=== PATIENT | female | born 1955 | race Caucasian/White ===

== ENCOUNTER 2023-08-25 13:41 | Outpatient (OUT) | payer MEDICARE, SELFPAY ==
--- NOTE | 2023-08-25 14:02 | XR_ITS ---
The [place] [id number] Patient Name: ZAIN VALENTINO MRN: [id number] date: 1955 Sex: F Assigned Patient Location: [facility] Current Patient Location: Accession/Order Number: [id number] Exam Date: 08/25/2023 14:17 Report Date: 08/26/2023 00:46 At the request of: VISHAL GIL Procedure: XR abdomen min 2V EXAMINATION: XR abdomen min 2V HISTORY: Abdominal Cramping R10.9,Nausea R11.0 COMPARISON: No relevant comparison available. FINDINGS: BOWEL GAS PATTERN: Air-fluid levels within multiple loops of bowel within the mid and upper abdomen. Large amount of stool within distal colon. Innumerable surgical clips throughout the abdomen and pelvis. No free air. CALCIFICATIONS: None significant. OTHER: Negative. No abnormal gaseous collections. XR/XR abdomen min 2V IMPRESSION: 1. Ileus versus distal partial bowel obstruction. Appearance favors ileus. Electronically authenticated by: JAMES ESCOBAR Date: 08/26/2023 00:46
== END 2023-08-25 13:42 | disposition home or self-care (01) ==
LOC: RAD 13:46
PROVIDERS: PCP Nurse Practitioner Family; Visit Provider Nurse Practitioner Family
DX: R10.9 Unspecified abdominal pain (principal); R11.0 Nausea; K56.7 Ileus, unspecified
CPT/HCPCS: 74019

== ENCOUNTER 2023-08-27 08:25 | Outpatient (OUT) | payer MEDICARE, SELFPAY ==
--- NOTE | 2023-08-27 08:47 | CT_ITS ---
The [address] [address] Patient Name: ZAIN VALENTINO MRN: [id number] date: 1955 Sex: F Assigned Patient Location: [facility] Current Patient Location: [facility] Accession/Order Number: [id number] Exam Date: 08/27/2023 09:00 Report Date: 08/27/2023 11:09 At the request of: NON-STAFF PHYSICIAN Procedure: CT abdomen pelvis w con EXAM: CT abdomen pelvis w con HISTORY: Follow-up for ileus versus partial bowel obstruction. COMPARISON: CT pelvis dated 02/17/2023. CT abdomen pelvis dated 08/24/2022. TECHNIQUE: IV contrast only was administered. Sagittal and coronal reformatted images were produced. Dose reduction techniques were achieved by using automated exposure control and/or adjustment of mA and/or kV according to patient size and/or use of iterative reconstruction technique. FINDINGS: The lung bases are clear. Lower mediastinal structures are normal. The liver is mildly enlarged and shows mild fatty change. The spleen is enlarged but enhances normally. The adrenal glands and pancreas are normal. Surgical changes of cholecystectomy. The kidneys enhance symmetrically and show no calcifications or hydronephrosis. The aorta has a normal course and caliber. Again seen is massive dilation of the distal portion of the colon. Stable colostomy in the right lower quadrant. Stable small anterior abdominal wall hernia containing a nondistended loop of bowel. Surgical changes of hysterectomy. Urinary bladder is minimally filled and is displaced posteriorly and inferiorly by the distended loop of bowel. Osseous structures are stable in appearance. CT/CT abdomen pelvis w con IMPRESSION: No appreciable change in the appearance of the massively dilated portion of the distal colon. Hepatosplenomegaly with mild fatty change in the liver. Electronically authenticated by: SALVADOR BRADSHAW Date: 08/27/2023 11:09
== END 2023-08-27 08:26 | disposition home or self-care (01) ==
LOC: RAD 08:26
PROVIDERS: PCP Nurse Practitioner Family
DX: K56.690 Other partial intestinal obstruction (principal); R16.2 Hepatomegaly with splenomegaly, not elsewhere classified
CPT/HCPCS: 74177; Q9967

== ENCOUNTER 2024-02-03 08:37 | Outpatient (OUT) | payer MEDICARE, SELFPAY ==
--- NOTE | 2024-02-03 08:45 | MM_ITS ---
Patient Name: ZAIN VALENTINO MR#: [id number] : 1955 Exam Date: 02/03/2024 Ordering Doctor: MRS. VISHAL GIL [employer] [facility]OLOG[facility] REPORT PROCEDURE: MM TOMOSYNTHESIS SCREENING BI COMPARISON: MG MAMM SCREEN 3D DEMI CAD, 02/01/2023. MG MAMM SCREEN 3D DEMI CAD, 12/17/2021. MG MAMM SCREEN DEMI W CAD, 03/22/2019. MG MAMM DEMI SCRN W CAD DIG, 05/03/2013. INDICATIONS: Screening Calculator Name NCI Breast Cancer Risk Assessment Tool 5 Year Breast Cancer Risk 1.90% Lifetime Breast Cancer Risk 6.40% Personal Breast Cancer No Personal Ovarian Cancer No Treatments None Family Cancers None LOCATION: [facility] BREAST COMPOSITION: Almost entirely fatty. FINDINGS: DIAGNOSTIC CATEGORY 2--BENIGN FINDING: RIGHT BREAST: No significant suspicious finding. Scattered benign-appearing calcifications are present. Scattered benign-appearing nodules are present. No significant change has occurred. LEFT BREAST: No significant suspicious finding. Scattered benign-appearing nodules are present. No significant change has occurred. RECOMMENDATIONS: ROUTINE MAMMOGRAM AND CLINICAL EVALUATION IN 12 MONTHS. PLEASE NOTE: A NORMAL MAMMOGRAM DOES NOT EXCLUDE THE POSSIBILITY OF BREAST CANCER. A CLINICALLY SUSPICIOUS PALPABLE LUMP SHOULD BE BIOPSIED. Dictated by: Fortunato Quintana M.D. on 02/04/2024 at 11:48 Approved by: Fortunato Quintana M.D. on 02/04/2024 at 11:54
--- NOTE | 2024-02-03 08:45 | XR_ITS ---
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 FINDINGS: SPINE ANALYSIS: Average bone mineral density is 1.436 g/cm2. T-score (standard deviation relative to young adult mean): 2.1 . -4.5% change since prior study. HIP ANALYSIS: Lowest bone mineral density is within the left femoral neck, 0.864 g/cm2. T-score (standard deviation relative to young adult mean): -1.2 . +4.2% change since prior study. XR/XR DEXA axial skeleton IMPRESSION: World [employer] Organization Classification: Osteopenia - Moderate Fracture Risk Electronically authenticated by: JAMES ESCOBAR Date: 02/03/2024 10:01
== END 2024-02-03 08:38 | disposition home or self-care (01) ==
LOC: MAMMO 08:37
PROVIDERS: PCP Nurse Practitioner Family; Visit Provider Nurse Practitioner Family
DX: Z12.31 Encounter for screening mammogram for malignant neoplasm of breast (principal); Z90.710 Acquired absence of both cervix and uterus; E28.39 Other primary ovarian failure; M85.80 Other specified disorders of bone density and structure, unspecified site
CPT/HCPCS: 77063; 77067; 77080